=== PATIENT | female | born 1970 | race African-American/Black ===

== ENCOUNTER 2019-10-05 08:41 | Inpatient (IN) ==
[2019-10-05] MEDS ORDERED: METOPROLOL TARTRATE 5 MG/5 ML VIAL IV STA (09:27)
[2019-10-05] MEDS ORDERED: amLODIPine 5 MG TABLET PO STA (09:28)
[2019-10-05 09:38] LABS: Basophils # 0.1 10*3/uL (0.0-0.2); Basophils % 0.5 % (0.0-0.8); Eosinophils # 0.4 10*3/uL (0.0-0.87); Eosinophils % 4.3 % (0.00-10.9); Hematocrit 36.2 VOL% (35.7-47.0); Hemoglobin 11.3 GM/DL (12.0-16.0); Immature Granulocytes % 0.4 %; Immature Granulocytes Absolute 0.04 #; Lymphocytes # 3.4 10*3/uL (1.4-4.0); Mean Corpuscular HGB Conc 31.2 GM/DL (32-36); Mean Corpuscular Volume 96.8 FL (87-102); Mean Platelet Volume 10.5 FL (9.6-12.0); Monocytes % 6.9 % (1.7-12.7); Neutrophils % 54.9 % (38.7-73.9); Platelet Count 390 T/CUMM (130-400); Red Blood Count 3.74 MC/CUMM (3.8-5.5); Red Cell Distribution Width 13.2 % (9.3-17.3); White Blood Count 10.3 T/CUMM (4-12)
[2019-10-05 09:38] LABS: Apearance,Urine CLEAR (Clear); Bacteria,Urine Occasional /HPF (Few); Bilirubin,Urine Negative (Negative); Blood, Urine Small mg/dL (Negative); Glucose,Urine (UA) Negative (Negative); Ketones,Urine Negative (Negative); Nitrite,Urine Negative (Negative); Protein,Urine Negative; RBC,Urine 1 /HPF (0-4); Squamous Epithelial Cell,Urine Occasional /HPF (0-10); Urine Color Straw (Yellow); Urine Specific Gravity 1.004 (1.001-1.035); Urine Urobilinogen < 2.0 EU/DL (0.2-1.0); WBC,Urine 2 /HPF (0-6)
[2019-10-05 09:56] LABS: Barbiturates Screen,Urine Negative (Negative); Benzodiazepines Screen,Urine Negative (Negative); Cannabinoid Screen,Urine Negative (Negative); Opiate Screen,Urine Negative (Negative); Phencyclidine Screen,Urine Negative (Negative)
[2019-10-05 10:01] LABS: Alanine Aminotransferase 15 U/L (13-56); Albumin 3.8 G/DL (3.4-5.0); Alkaline Phosphatase 86 U/L (45-117); Aspartate Amino Transferase 17 U/L (0-37); Bilirubin,Total < 0.39 MG/DL (0.2-1.0); Blood Urea Nitrogen 12 MG/DL (7-18); Estimated Glom Filtration Rate 69 ML/MIN; Glucose 101 MG/DL (74-106); Osmolality,Calculated 276.5 MOS/KG (273-304)
[2019-10-05] MEDS ORDERED: niCARdipine INJ 25 MG in SODIUM CHLORIDE 0.9% 240 ML IV PRN ×2 (10:23→11:02)
[2019-10-05] MEDS ORDERED: niCARdipine 25 MG/10 ML VIAL IV ONE (10:24)
[2019-10-05 10:56] LABS: INR 0.9; PT Patient Result 9.7 SECS (9.6-12.2)
[2019-10-05] MEDS ORDERED: ACETAMINOPHEN 325 MG TABLET PO PRN (11:02)
[2019-10-05] MEDS ORDERED: ONDANSETRON 4 MG/2 ML VIAL IV PRN (11:02)
[2019-10-05] MEDS ORDERED: carvediloL 3.125 MG TABLET ONE (12:33)
[2019-10-05] MEDS: PANTOPRAZOLE 40 MG TABLET PO SCH (12:40)
[2019-10-05] MEDS: ENOXAPARIN 40 MG/0.4 ML SYRINGE SUBCUT SCH (12:40)
[2019-10-05] MEDS: carvediloL 12.5 MG TABLET PO SCH ×2 (12:41→21:14)
[2019-10-05] MEDS ORDERED: INFLUENZA VIRUS VACCINE 0.5 ML SYRINGE IM ONE (15:02)
[2019-10-05] MEDS: ACETAMINOPHEN 325 MG TABLET PO PRN (21:14)
[2019-10-06] MEDS: ACETAMINOPHEN 325 MG TABLET PO PRN ×3 (03:20→23:00)
[2019-10-06 04:34] LABS: Basophils # 0.1 10*3/uL (0.0-0.2); Basophils % 0.6 % (0.0-0.8); Eosinophils # 0.4 10*3/uL (0.0-0.87); Eosinophils % 4.2 % (0.00-10.9); Hematocrit 32.4 VOL% (35.7-47.0); Hemoglobin 9.9 GM/DL (12.0-16.0); Immature Granulocytes % 0.5 %; Immature Granulocytes Absolute 0.04 #; Lymphocytes # 2.6 10*3/uL (1.4-4.0); Lymphocytes % 31.6 % (21.3-54.2); Mean Corpuscular HGB Conc 30.6 GM/DL (32-36); Mean Corpuscular Volume 98.5 FL (87-102); Mean Platelet Volume 10.5 FL (9.6-12.0); Monocytes % 8.7 % (1.7-12.7); Neutrophils % 54.4 % (38.7-73.9); Platelet Count 356 T/CUMM (130-400); Red Blood Count 3.29 MC/CUMM (3.8-5.5); Red Cell Distribution Width 13.2 % (9.3-17.3); White Blood Count 8.3 T/CUMM (4-12)
[2019-10-06 04:57] LABS: Calcium 8.3 MG/DL (8.5-10.1); Osmolality,Calculated 272.8 MOS/KG (273-304); Risk Ratio 3.64
[2019-10-06] MEDS: carvediloL 12.5 MG TABLET PO SCH ×2 (08:17→17:30)
[2019-10-06] MEDS: PANTOPRAZOLE 40 MG TABLET PO SCH (08:17)
[2019-10-06] MEDS ORDERED: hydrALAZINE 20 MG/1 ML VIAL IV PRN (08:41)
[2019-10-06] MEDS: hydroCHLOROthiazide 25 MG TABLET PO SCH (09:12)
[2019-10-06] MEDS: LOSARTAN 50 MG TABLET PO SCH (09:12)
[2019-10-06] MEDS: ENOXAPARIN 40 MG/0.4 ML SYRINGE SUBCUT SCH (10:58)
[2019-10-07] MEDS: PANTOPRAZOLE 40 MG TABLET PO SCH (09:02)
[2019-10-07] MEDS: carvediloL 12.5 MG TABLET PO SCH (09:03)
[2019-10-07] MEDS: LOSARTAN 50 MG TABLET PO SCH (09:03)
[2019-10-07] MEDS: hydroCHLOROthiazide 25 MG TABLET PO SCH (09:03)
[2019-10-07] MEDS: ENOXAPARIN 40 MG/0.4 ML SYRINGE SUBCUT SCH (09:05)
[2019-10-07] MEDS ORDERED: amLODIPine 10 MG TABLET PO ONE (13:18)
[2019-10-07 16:10] VITALS: BP 147/89
== END 2019-10-07 16:04 | disposition home or self-care (01) | DRG 199 ==
LOC: N.ED 08:41 → SUATTDRO 11:01 → N.EDINP 11:01 → N.ICU 14:57 → N.4E 10-06 11:21
PROVIDERS: ADMIT Internal Medicine; ATTEND Family Medicine